=== PATIENT | male | born 1975 | race Caucasian/White ===

== ENCOUNTER 2018-09-21 10:21 | Emergency (ER) | payer MEDICAID ==
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
[2018-09-21] MEDS ORDERED: HYDROmorphone 1 MG/ML Syringe IVPUSH ONE (10:58)
[2018-09-21] MEDS ORDERED: Ondansetron 4 MG/2 ML SDV IVPUSH ONE (10:58)
[2018-09-21] MEDS ORDERED: Dextrose 5%-0.9% NaCl 1,000 ML IV SCH (11:00)
[2018-09-21] MEDS ORDERED: Sodium Chloride 0.9% 10 ML Syringe FLUSH PRN (11:14)
[2018-09-21] MEDS ORDERED: Iopamidol 612 MG/ML 100 ML Bottle IVPUSH ONE (11:14)
--- NOTE | 2018-09-21 11:43 | CT ---
Head CT Technique: Multiple axial sections through the brain were obtained. Intravenous contrast was notched utilized. Comparison: No previous intracranial imaging is available. Findings: Soft tissue swelling is seen around the left orbit. Ventricles along with basal cisterns and sulci over the convexities are within normal limits. No abnormal parenchymal densities are seen. No evidence of intracranial hemorrhage. No midline shift or mass effect is seen. Sinus findings are seen which will be described on facial bone study. No acute calvarial abnormality is identified on bone window settings. Impression: 1. Soft tissue swelling around the left orbit. 2. Sinus findings which will be described on facial CT exam. 3. No acute intracranial abnormality is identified. Diagnostic code #2
--- NOTE | 2018-09-21 11:47 | CT ---
CT cervical spine Technique: Multiple axial sections were obtained from above C1 inferiorly to the bottom of T2. Reconstructed sagittal and coronal images were reviewed. Findings: Mastoid sinuses are clear. Posterior skull base is intact. Vertebral bodies and posterior arches are intact. No fracture is seen. Slight posterior spurring noted at C3-4 and at C6-7. Mild anterior spurring noted at C6-7. No abnormal subluxation is seen. Slight degenerative spurring is noted within the right uncovertebral joint at C6-7 and lesser spurring within the right uncovertebral joint at C3-4. Impression: 1. Mild degenerative change. 2. Nothing acute is appreciated on CT study of the cervical spine. Diagnostic code #2
--- NOTE | 2018-09-21 11:49 | CT ---
CT facial bones Technique: Multiple axial sections through the facial bones were obtained. Reconstructed coronal and sagittal images were reviewed. Comparison: No prior facial exam. Findings: Opacified left maxillary sinus is seen. Sinus opacification continues into a large portion of the ethmoid sinuses on the left side as well as left frontal sinus. Mild mucosal thickening is seen within the right frontal sinus. No air-fluid levels are seen. Mild soft tissue swelling is noted around the left orbit. No facial bone fracture is seen. Impression: 1. Sinus findings which most likely represents fairly severe chronic sinusitis. 2. Soft tissue swelling around the left orbit. 3. No acute bony abnormality is seen on CT study of the facial bones. Diagnostic code #3
--- NOTE | 2018-09-21 11:55 | CT ---
CT neck Technique: Multiple axial sections were obtained from above the external auditory canals inferiorly through the lung apices. Intravenous contrast was utilized. Reconstructed sagittal and coronal images were obtained. Findings: Small portion of the visualized lung apices are clear. Enhancing thyroid gland appears within normal limits. Enhancing vascular structures appear within normal limits. Sinus findings are seen which were described on CT facial bone study. Soft tissue swelling is again noted around the left orbit. Parotid and submandibular salivary glands are normal. Small scattered normal-appearing lymph nodes are seen within the neck. Trachea appears unremarkable. Epiglottis is normal. Prevertebral soft tissues are normal. Parapharyngeal soft tissues are symmetric and within normal limits in size. Impression: 1. Chronic sinus findings as noted on CT facial bone study. Soft tissue swelling around the left orbit is again noted. 2. Nothing acute is otherwise seen on CT study of the neck. Diagnostic code #2
[2018-09-21 13:44] VITALS: BP 145/72
--- NOTE | 2018-09-21 16:16 | CR ---
Right hand: Four views of the right hand were obtained. Comparison: No prior study. Fourth finger shows the DIP joint to be held in flexion. Please correlate if there has been soft tissue injury. Joint spaces are maintained. No acute fracture or other bony abnormality is seen. Impression: 1. DIP joint of the fourth finger is held in flexion and please correlate if this represents soft tissues injury within the ligamentous structures. 2. No acute bony abnormality is seen. Diagnostic code #3
--- NOTE | 2018-09-21 16:16 | CR ---
Right wrist: Four views of the right wrist were obtained. Comparison: No previous wrist exam. Joint spaces are maintained. No fracture, dislocation or other bony abnormality is seen. Impression: 1. No abnormality is seen on right wrist exam. Diagnostic code #1
--- NOTE | 2018-09-21 16:16 | CR ---
Pelvis: AP view of the pelvis was obtained. Comparison: No prior study. Right hip prosthesis is seen. Lucency is noted within the left femoral head likely representing change from previous avascular necrosis. Minimal joint space narrowing is seen within the left hip. Sacroiliac joints are within normal limits. No fracture or other abnormality is seen. Impression: 1. Right hip prosthesis. 2. Findings suspicious for previous avascular necrosis within the left hip. Mild joint space narrowing noted of the left hip. 3. Nothing acute is seen on AP pelvis. Diagnostic code #3
== END 2018-09-21 12:40 | disposition home or self-care (01) ==
LOC: JD.ED 10:21
DX: S05.12XA Contusion of eyeball and orbital tissues, left eye, initial encounter (principal); S60.211A Contusion of right wrist, initial encounter; M20.011 Mallet finger of right finger(s); S70.01XA Contusion of right hip, initial encounter; J32.4 Chronic pansinusitis; F17.210 Nicotine dependence, cigarettes, uncomplicated; Z88.8 Allergy status to other drugs, medicaments and biological substances; Y04.0XXA Assault by unarmed brawl or fight, initial encounter; Z79.899 Other long term (current) drug therapy
CPT/HCPCS: 70450; 70486; 70491; 72125; 72170; 73110; 73130; 96361; 96374; 96375; 99284; J1170; J2405; J7042; Q9967